=== PATIENT | female | born 1985 | race Caucasian/White ===

== ENCOUNTER 2018-11-25 10:59 | Inpatient (IN) ==
[2018-11-25] MEDS ORDERED: ACETAMINOPHEN 325 MG TABLET PO PRN (13:51)
[2018-11-25] MEDS ORDERED: ONDANSETRON 4 MG/2 ML VIAL IV PRN ×2 (13:51→16:07)
[2018-11-25] MEDS ORDERED: LIDOCAINE 1% 20 ML VIAL ONE (14:02)
[2018-11-25 14:39] LABS: Basophils % 0.2 % (0.0-0.8); Eosinophils # 0.2 10*3/uL (0.0-0.87); Eosinophils % 1.9 % (0.00-10.9); Hematocrit 31.4 VOL% (35.7-47.0); Hemoglobin 9.9 GM/DL (12.0-16.0); Immature Granulocytes % 0.2 %; Immature Granulocytes Absolute 0.02 #; Lymphocytes # 2.3 10*3/uL (1.4-4.0); Lymphocytes % 25.3 % (21.3-54.2); Mean Corpuscular HGB Conc 31.5 GM/DL (32-36); Mean Corpuscular Volume 88.5 FL (87-102); Mean Platelet Volume 9.3 FL (9.6-12.0); Neutrophils % 65.4 % (38.7-73.9); Platelet Count 338 T/CUMM (130-400); Red Blood Count 3.55 MC/CUMM (3.8-5.5); Red Cell Distribution Width 14.6 % (9.3-17.3); White Blood Count 9.1 T/CUMM (4-12)
[2018-11-25 14:40] LABS: Apearance,Urine Slightly Hazy (Clear); Bilirubin,Urine Negative (Negative); Blood, Urine Negative (Negative); Glucose,Urine (UA) Negative (Negative); Ketones,Urine Negative (Negative); Mucus,Urine Moderate /LPF (Occasional); Nitrite,Urine Negative (Negative); Protein,Urine Negative; RBC,Urine 1 /HPF (0-4); Squamous Epithelial Cell,Urine Occasional /HPF (0-10); Urine Color Yellow (Yellow); Urine Specific Gravity 1.015 (1.001-1.035); Urine Urobilinogen < 2.0 EU/DL (0.2-1.0); WBC,Urine 1 /HPF (0-6)
[2018-11-25 14:59] LABS: Albumin 2.9 G/DL (3.4-5.0); Bilirubin,Total 0.4 MG/DL (0.2-1.0); Calcium 8.5 MG/DL (8.5-10.1); Osmolality,Calculated 279.3 MOS/KG (273-304); Total Protein 6.9 G/DL (6.4-8.3)
[2018-11-25] MEDS ORDERED: CLINDAMYCIN INJ 50 ML IV ONE (15:28)
[2018-11-25] MEDS ORDERED: MIDAZOLAM 2 MG/2 ML VIAL ONE (15:54)
[2018-11-25] MEDS ORDERED: PROPOFOL 200 MG/20 ML VIAL IV ONE (15:54)
[2018-11-25] MEDS ORDERED: ONDANSETRON 4 MG/2 ML VIAL ONE (15:54)
[2018-11-25] MEDS ORDERED: SEVOFLURANE 1 UNIT/15 MINUTE INH ONE (15:54)
[2018-11-25] MEDS ORDERED: fentaNYL 100 MCG/2 ML VIAL ONE (15:54)
[2018-11-25] MEDS ORDERED: LACTATED RINGERS 1,000 ML IV ONE (15:55)
[2018-11-25] MEDS ORDERED: SUCCINYLCHOLINE 200 MG/10 ML VIAL ONE (15:55)
[2018-11-25] MEDS: HYDROmorphone 2 MG/1 ML VIAL IV PRN ×2 (16:00→16:05)
[2018-11-25] MEDS: CLINDAMYCIN INJ 900 MG in PREMIX 1 EACH IV SCH ×2 (16:09→21:13)
[2018-11-25] MEDS: MORPHINE 4 MG/1 ML VIAL IV PRN ×2 (17:22→23:11)
[2018-11-26] MEDS: CLINDAMYCIN INJ 900 MG in PREMIX 1 EACH IV SCH ×2 (02:29→09:15)
[2018-11-26 04:39] LABS: Basophils % 0.3 % (0.0-0.8); Eosinophils # 0.2 10*3/uL (0.0-0.87); Eosinophils % 2.4 % (0.00-10.9); Hematocrit 29.6 VOL% (35.7-47.0); Hemoglobin 9.2 GM/DL (12.0-16.0); Immature Granulocytes % 0.5 %; Immature Granulocytes Absolute 0.04 #; Lymphocytes # 2.6 10*3/uL (1.4-4.0); Lymphocytes % 29.9 % (21.3-54.2); Mean Corpuscular HGB Conc 31.1 GM/DL (32-36); Mean Corpuscular Volume 88.6 FL (87-102); Mean Platelet Volume 9.4 FL (9.6-12.0); Monocytes % 8.7 % (1.7-12.7); Neutrophils % 58.2 % (38.7-73.9); Platelet Count 328 T/CUMM (130-400); Red Blood Count 3.34 MC/CUMM (3.8-5.5); Red Cell Distribution Width 14.8 % (9.3-17.3); White Blood Count 8.7 T/CUMM (4-12)
[2018-11-26] MEDS: MORPHINE 4 MG/1 ML VIAL IV PRN ×2 (04:41→10:37)
[2018-11-26 05:12] LABS: Calcium 8.2 MG/DL (8.5-10.1); Osmolality,Calculated 281.1 MOS/KG (273-304)
[2018-11-26] MEDS: PANTOPRAZOLE 40 MG TABLET PO SCH (09:01)
[2018-11-26] MEDS: ERTAPENEM 1,000 MG in SODIUM CHLORIDE 0.9% 100 ML IV SCH (14:10)
[2018-11-27] MEDS: PANTOPRAZOLE 40 MG TABLET PO SCH (08:59)
[2018-11-27] MEDS: MORPHINE 4 MG/1 ML VIAL IV PRN (11:15)
[2018-11-27] MEDS: ERTAPENEM 1,000 MG in SODIUM CHLORIDE 0.9% 100 ML IV SCH (12:29)
[2018-11-27] MEDS: VANCOMYCIN INJ 1,000 MG in SODIUM CHLORIDE 0.9% 250 ML IV SCH (14:52)
[2018-11-27] MEDS: CHLORHEXIDINE 4% SOLN 118 ML BOTTLE TOP SCH (15:03)
[2018-11-27] MEDS: SODIUM HYPOCHLORITE 0.25% IRRIG 473 ML BOTTLE TOP SCH (15:03)
[2018-11-28] MEDS: VANCOMYCIN INJ 1,000 MG in SODIUM CHLORIDE 0.9% 250 ML IV SCH ×2 (01:13→13:27)
[2018-11-28] MEDS ORDERED: FAMOTIDINE 20 MG TABLET PO ONE (06:00)
[2018-11-28 06:02] LABS: Basophils % 0.3 % (0.0-0.8); Eosinophils # 0.2 10*3/uL (0.0-0.87); Eosinophils % 3.1 % (0.00-10.9); Hematocrit 31.8 VOL% (35.7-47.0); Hemoglobin 10.2 GM/DL (12.0-16.0); Immature Granulocytes % 0.4 %; Immature Granulocytes Absolute 0.03 #; Lymphocytes # 2.5 10*3/uL (1.4-4.0); Lymphocytes % 34.1 % (21.3-54.2); Mean Corpuscular HGB Conc 32.1 GM/DL (32-36); Mean Corpuscular Volume 86.6 FL (87-102); Mean Platelet Volume 9.5 FL (9.6-12.0); Monocytes % 5.9 % (1.7-12.7); Neutrophils % 56.2 % (38.7-73.9); Platelet Count 421 T/CUMM (130-400); Red Blood Count 3.67 MC/CUMM (3.8-5.5); Red Cell Distribution Width 14.5 % (9.3-17.3); White Blood Count 7.5 T/CUMM (4-12)
[2018-11-28] MEDS ORDERED: LACTATED RINGERS 1,000 ML IV SCH (08:30)
[2018-11-28] MEDS ORDERED: LIDOCAINE 1% 20 ML VIAL ONE (09:17)
[2018-11-28] MEDS ORDERED: BUPIVACAINE MPF 0.25% 30 ML VIAL ONE (09:17)
[2018-11-28] MEDS: SODIUM HYPOCHLORITE 0.25% IRRIG 473 ML BOTTLE TOP SCH (09:30)
[2018-11-28] MEDS: CHLORHEXIDINE 4% SOLN 118 ML BOTTLE TOP SCH (09:30)
[2018-11-28] MEDS: PANTOPRAZOLE 40 MG TABLET PO SCH ×2 (09:31→09:34)
[2018-11-28] MEDS ORDERED: fentaNYL 100 MCG/2 ML VIAL ONE (10:11)
[2018-11-28] MEDS ORDERED: PROPOFOL 200 MG/20 ML VIAL IV ONE (10:11)
[2018-11-28] MEDS ORDERED: MIDAZOLAM 2 MG/2 ML VIAL ONE (10:11)
[2018-11-28] MEDS ORDERED: SODIUM CHLORIDE 0.9% 250 ML IV ONE (10:12)
[2018-11-28] MEDS ORDERED: KETAMINE 500 MG/10 ML VIAL ONE (10:12)
[2018-11-28] MEDS ORDERED: ONDANSETRON 4 MG/2 ML VIAL IV PRN (10:30)
[2018-11-28] MEDS: HYDROmorphone 2 MG/1 ML VIAL IV PRN ×2 (10:30→10:35)
[2018-11-28] MEDS ORDERED: HYDROmorphone 2 MG/1 ML VIAL ONE (10:33)
[2018-11-28] MEDS ORDERED: ONDANSETRON 4 MG/2 ML VIAL ONE (10:33)
[2018-11-28] MEDS: MORPHINE 4 MG/1 ML VIAL IV PRN ×2 (13:14→21:49)
[2018-11-29] MEDS: VANCOMYCIN INJ 1,000 MG in SODIUM CHLORIDE 0.9% 250 ML IV SCH ×3 (01:19→20:04)
[2018-11-29] MEDS: PANTOPRAZOLE 40 MG TABLET PO SCH (08:44)
[2018-11-29] MEDS: CHLORHEXIDINE 4% SOLN 118 ML BOTTLE TOP SCH (09:00)
[2018-11-29] MEDS: SODIUM HYPOCHLORITE 0.25% IRRIG 473 ML BOTTLE TOP SCH (09:00)
[2018-11-30] MEDS: VANCOMYCIN INJ 1,000 MG in SODIUM CHLORIDE 0.9% 250 ML IV SCH ×3 (04:10→22:03)
[2018-11-30] MEDS: SODIUM HYPOCHLORITE 0.25% IRRIG 473 ML BOTTLE TOP SCH (13:14)
[2018-11-30] MEDS: PANTOPRAZOLE 40 MG TABLET PO SCH (13:15)
[2018-11-30] MEDS: CHLORHEXIDINE 4% SOLN 118 ML BOTTLE TOP SCH (13:15)
[2018-12-01] MEDS: VANCOMYCIN INJ 1,000 MG in SODIUM CHLORIDE 0.9% 250 ML IV SCH ×2 (06:16→14:06)
[2018-12-01 11:39] VITALS: BP 146/91
[2018-12-01] MEDS: SODIUM HYPOCHLORITE 0.25% IRRIG 473 ML BOTTLE TOP SCH (13:57)
[2018-12-01] MEDS: CHLORHEXIDINE 4% SOLN 118 ML BOTTLE TOP SCH (14:06)
[2018-12-01] MEDS: PANTOPRAZOLE 40 MG TABLET PO SCH (14:06)
== END 2018-12-01 14:35 | disposition home or self-care (01) | DRG 264 ==
LOC: N.3E 10:59 → N.ED 10:59 → N.3E 18:56
PROVIDERS: ADMIT Surgery; ATTEND Surgery